=== PATIENT | female | born 1980 | race Caucasian/White ===

== ENCOUNTER 2017-01-05 15:42 | Outpatient (CLI) ==
[2015-05-04 09:45] VITALS: BMI 29.9
[2017-01-05 18:15] LABS: BILIRUBIN,URINE Negative (NEGATIVE); KETONES,URINE Negative (NEGATIVE); LEUKOCYTE ESTERASE ,URINE 1+ (NEGATIVE); NITRITE,URINE Negative (NEGATIVE); PH,URINE 5.5 (5-9); PROTEIN,URINE Negative (NEGATIVE); URINE, BLOOD Negative (NEGATIVE)
[2017-01-05 18:39] LABS: ADD URINE MICROSCOPIC YES
[2017-01-05 18:40] LABS: BACTERIA,URINE 2+ (NOT PRESENT)
== END 2017-01-05 15:43 | disposition home or self-care (01) ==
LOC: LAB 15:42
PROVIDERS: ATTEND Nurse Practitioner Family
DX: R35.0 Frequency of micturition (principal)
CPT/HCPCS: 81001; 87086

== ENCOUNTER 2018-03-06 17:25 | Emergency (ER) ==
[2018-03-06 17:29] VITALS: BP 150/88; TEMP 99.2; BMI 31.4
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
== END 2018-03-06 19:50 | disposition home or self-care (01) ==
LOC: ED 17:25
DX: S13.9XXA Sprain of joints and ligaments of unspecified parts of neck, initial encounter (principal); S33.5XXA Sprain of ligaments of lumbar spine, initial encounter; V89.2XXA Person injured in unspecified motor-vehicle accident, traffic, initial encounter
CPT/HCPCS: 99283